=== PATIENT | male | born 2000 | race African-American/Black ===

== ENCOUNTER 2020-01-25 12:38 | Emergency (ER) | payer OTHER ==
[~2020-01-25] VITALS: Ht 185.4 cm; Wt 73.0 kg
[2020-01-25] MEDS ORDERED: TETRACAINE 0.5% OPHTH DROPS 4ML RIGHTEYE ONE (14:30)
[2020-01-25] MEDS ORDERED: FLUORESCEIN SODIUM 1MG/STRIP RIGHTEYE ONE (14:30)
[2020-01-25] MEDS ORDERED: IBUPROFEN 600MG TABLET PO ONE (15:00)
[2020-01-25 15:30] VITALS: BP 145/87
== END 2020-01-25 15:51 | disposition home or self-care (01) ==
LOC: ER 12:38
DX: S05.01XA Injury of conjunctiva and corneal abrasion without foreign body, right eye, initial encounter (principal); X58.XXXA Exposure to other specified factors, initial encounter; Y93.89 Activity, other specified; Y92.69 Other specified industrial and construction area as the place of occurrence of the external cause; Y99.0 Civilian activity done for income or pay; H57.11 Ocular pain, right eye
CPT/HCPCS: 99284